=== PATIENT | male | born 2000 | race Caucasian/White ===

== ENCOUNTER 2024-01-01 21:29 | Emergency (ER) | payer OTHER, SELFPAY ==
[2024-01-01 21:31] VITALS: BP 130/90; PULSE 99; RESP 16; TEMP 36.7; O2SAT 99; BMI 24.7
--- NOTE | 2024-01-01 22:32 | EX.ED.VIS.PS ---
HPI HPI - Psych History of Present Illness Chief Complaint: Mental Health Informant: patient Onset/Context/Timing Onset: Weeks Context: Gradual Onset Worsened by: - (Nothing) Relieved by: Nothing Associated Symptoms Associated Symptoms - Psych: Positive for Confusion, Paranoia and Auditory Hallucinations; Negative for Suicidal Thoughts or Visual Hallucinations Narrative Narrative: Patient presents with paranoid ideations, confusion, and auditory hallucinations. Patient states he does hear some voices but does not know what they are telling him. Patient denies any suicidal ideations at this time. Patient states he has had thoughts of hurting other people but states that there is not a particular person that he wants to hurt. Patient states she has been feeling confused at times. Family states that the patient has not been sleeping well. Family states the patient has been sharpening knives because he thinks people are out to get him. Patient does admit to a mild headache. Patient admits to some nausea and vomiting. Patient also admits to some pain in his neck. Patient denies any fevers or chills. PFSH PFSH Medical History no medical history no medical history Home Medications ?Medication ?Instructions ?Recorded ?Last Taken ?Type NK 01/01/24 Unknown History Allergy/AdvReac Type Severity Reaction Status Date / Time No Known Allergies Allergy Verified 01/01/24 21:35 Surgical History no surgical history no surgical history Social History Smoking Status: Never smoker ROS ROS ED Constitutional Constitutional ED: Denies chills or fever(s) Eyes Eyes: Denies blurry vision or change in vision ENT ENT ED: Denies rhinorrhea or sore throat Cardiovascular Cardiovascular: Denies chest pain or palpitations Respiratory/Chest Respiratory/Chest: Denies cough or dyspnea Gastrointestinal Gastrointestinal: Reports nausea and vomiting Genitourinary Genitourinary ED: Denies dysuria or hematuria Musculoskeletal Musculoskeletal: Reports neck pain; Denies back pain Integumentary Denies abscess or rash Neurologic Neurologic: Reports headache(s); Denies weakness Allergic/Immunologic Allergic/Immunologic ED: Denies mouth swelling or urticaria EXAM Physical Exam Const Vital Signs: 01/01/24 21:31 Temperature 98.1 F Temperature Source Oral Pulse Rate 99 Respiratory Rate 16 Blood Pressure 130/90 H Blood Pressure Mean 103 Pulse Ox 99 Oxygen Delivery Method Room Air Positive well nourished and well developed General Appearance ED: well developed and NAD HEENT Reports moist mucous membranes Neck supple and no JVD Resp normal respiratory effort and clear to auscultation bilaterally Cardio Rate: regular rate Rhythm: regular rhythm GI non-tender and non-distended Palpation: soft Neuro oriented x3, CN's II-XII intact bilaterally and no sensory deficits noted [place] Coma Scale: document GCS findings Spontaneous Obeys Commands Oriented 15 Sensorium / Orientation: alert Motor Exam: strength 5/5 throughout Psych mental status grossly normal Appearance: grossly normal Attitude: calm Activity / Motor Behavior: appropriate eye contact Speech: soft Mood & Affect: flat affect Thought Content: No suicidality, delusion(s) and hallucination(s) Positive for auditory MDM MDM MDM Narrative Medical decision making narrative: Medical clearance labs will be obtained. CBC will be obtained to assess for leukocytosis and anemia. Basic metabolic profile will be obtained to assess for electrolyte abnormality and renal function. Urinalysis will be obtained to assess for urinary tract infection hematuria. Urine tox screen will be obtained to assess for substance abuse. Serum alcohol level will be obtained to assess for alcohol intoxication. CT scan of the brain will be obtained to assess for intracranial mass and bleeding. Lab Data Attestation: I reviewed the patient's lab results. Lab results narrative: CBC was reviewed and was within normal limits. Basic metabolic profile was reviewed. Potassium was slightly low at 3.2. The remainder is within normal limits. Urinalysis was reviewed. There is no evidence of urinary tract infection or hematuria. Urine tox screen was reviewed and was negative. Serum alcohol level was reviewed and was less than 3.0. Labs: Laboratory Results - last 24 hr 01/01/24 01/01/24 22:15 22:35 WBC 9.3 RBC 5.08 Hgb 13.7 Hct 41.7 MCV 82.1 MCH 27.0 MCHC 32.9 RDW Std Deviation 38.5 RDW Coeff of Halley 12.9 Plt Count 265 MPV 9.1 Immature Gran % (Auto) 0.300 Neut % (Auto) 61.7 Lymph % (Auto) 29.4 [place] % (Auto) 7.7 Eos % (Auto) 0.4 Baso % (Auto) 0.5 Absolute Neuts (auto) 5.7 Absolute Lymphs (auto) 2.73 Nucleated RBC % 0 Sodium 137 Potassium 3.2 L Chloride 104 Carbon Dioxide 26.0 Anion Gap 7 BUN 12 Creatinine 0.89 Estim Creat Clear Calc 130.19 Est GFR (MDRD) Af Amer 138 Est GFR (MDRD) Non-Af 114 BUN/Creatinine Ratio 13.5 Glucose 90 Calcium 9.6 Urine Color Straw Urine Clarity Sl. Cloudy Urine pH 7.0 Ur Specific [place] 1.010 Urine Protein Negative Urine Glucose (UA) Normal Urine Ketones Negative Urine Occult Blood Negative Urine Nitrite Negative Urine Bilirubin Negative Urine Urobilinogen Normal Ur Leukocyte Esterase Negative Urine RBC 0 SEEN Urine WBC 0 SEEN Ur Squamous Epith Cells 0 SEEN Urine Bacteria 0 SEEN Urine Mucus 0 SEEN Urine Opiates Screen NEGATIVE Urine Methadone Screen NEGATIVE Ur Barbiturates Screen NEGATIVE Ur Phencyclidine Scrn NEGATIVE Ur Amphetamines Screen NEGATIVE MDMA (Ecstasy) Screen NEGATIVE U Benzodiazepines Scrn NEGATIVE Urine Cocaine Screen NEGATIVE U Cannabinoids Screen NEGATIVE Ur Drug Screen Comment Ethyl Alcohol < 3.0 Radiography Diagnostic Testing: Clinical Impression(s) from Imaging Studies Brain CT 01/01/24 22:52 IMPRESSION: Normal unenhanced CT scan of the brain. Electronically Signed: Parag Hernandez MD at 23:30 EDT , CT scan of the brain was obtained. There is no acute intracranial abnormality. This was interpreted by the radiologist and was also independently reviewed by myself. Treatment and Re-Evaluation Narrative: Patient was medically cleared for crisis evaluation. Crisis was in to evaluate the patient and felt that the patient could be safety plan at home. Patient lives with several family member who will be able to monitor him. Crisis counselor was able to arrange for follow-up care. Patient and family understand and are agreeable with the plan. All questions were answered. Discharge Plan Triage Chief Complaint: Mental Health ED Provider: Renato Miller Dx/Rx/DC Orders Clinical Impression: Auditory hallucinations, Confusion Instructions: ED Confusion Prescriptions: No Action NK Primary Care Provider: Jacob Frias Referrals: Counseling,Center [Group of Physicians] - [facility] appointment Jacob Frias DO [Primary Care Provider] - 5-7 Days Print Language: Lao Disposition Disposition: Home, Self Care
[2024-01-01 22:44] LABS: Absolute Lymphocyte Count 2.73 X10^3/uL (0.83-4.51); Absolute Neutrophil Count 5.7 X10^3/uL (2.0-7.7); Basophil# 0.05 X10^3/uL; Basophil% 0.5 % (0-1); Eosinophil# 0.04 X10^3/uL; Eosinophils% 0.4 % (0-5); Hematocrit 41.7 % (40-54); Hemoglobin 13.7 g/dL (13.0-16.5); Lymphocyte # 2.73 X10^3/ul (0.83-4.51); Lymphocyte % 29.4 % (19-41); Mean Corp Hgb Conc 32.9 g/dL (32-36); Mean Corpuscular Volume 82.1 fL (80-94); Mean Platelet Vol. 9.1 fl (6.2-12.0); Monocyte# 0.71 X10^3/uL; Monocyte% 7.7 % (0-10); NRBC Flagged by Analyzer 0 % (0-5); Neutrophil # 5.72 X10^3/uL (2.7-7.7); Neutrophil % 61.7 % (47-70); Platelet Count 265 K/mm3 (150-450); RBC Distribution Width CV 12.9 % (11.6-14.6); RBC Distribution Width SD 38.5 fl (35.1-43.9); Red Blood Count 5.08 M/mm3 (4.6-6.2); White Blood Count 9.3 K/mm3 (4.4-11.0)
[2024-01-01 22:46] LABS: Bacteria 0 SEEN /hpf (None Seen); Mucous, Urine 0 SEEN /hpf (<or=2+); Red Blood Cells-Urine 0 SEEN /hpf (0-5); Squamous Epithelial Cells - UA 0 SEEN /hpf (0-5); White Blood Cells 0 SEEN /hpf (0-5)
[2024-01-01 22:51] LABS: Color, Urine Straw (Yellow); Glucose, Dipstick Normal (Normal); Ketone-Dipstick Negative (Negative); Leukocyte Esterase-Dipstick Negative /ul (Negative); Nitrite-Dipstick Negative (Negative); Occult Blood-Urine Negative /ul (Negative); Protein-Dipstick Negative (Negative); Urine Bilirubin Dipstick Negative (Negative); Urine Clarity Sl. Cloudy (Clear); Urine Urobilinogen Normal (Normal)
--- NOTE | 2024-01-01 22:52 | CT_ITS ---
STUDY: CT BRAIN WITHOUT CONTRAST REASON FOR EXAM: Male, 23 years old. CHANGE IN MENTAL STATUS. HASNT SLEPT IN DAYS RADIATION DOSAGE (If Supplied By Facility): CTDIvol = ( 44.99 ) mGy, DLP = ( 796.11 ) mGycm TECHNIQUE: Transaxial CT imaging of the brain was performed without administration of intravenous contrast material. Individualized dose optimization techniques were used for this CT. COMPARISON: No relevant priors. FINDINGS: Normal soft tissue structures. Normal calvarium. Normal size ventricles and extra-axial spaces for the patient''s age. Normal white matter tracts of the cerebral hemispheres. Normal basal ganglia and thalami. Normal brainstem. Normal cerebellum. There is no intracranial hemorrhage. There are no findings of an acute ischemic infarction. Normal visualized paranasal sinuses. CT/Brain/Head without Contrast IMPRESSION: Normal unenhanced CT scan of the brain. Electronically Signed: Parag Hernandez MD at 23:30 EDT ,
[2024-01-01 22:57] LABS: Alcohol, Blood (Medical)-Serum < 3.0 mg/dL
[2024-01-01 22:58] LABS: Anion Gap 7 (5-15); BUN 12 mg/dL (7-18); BUN/Creat Ratio 13.5 RATIO (10-20); Calcium,Total 9.6 mg/dL (8.5-10.1); Chloride 104 mmol/L (98-107); Creatinine, Serum 0.89 mg/dL (0.70-1.30); EST Glomerular Filtration Rate 114 mL/min (>60); Est Glom Filt Rate - Afr Amer 138 mL/min (>60); Estimated Creatinine Clearance 130.19 ml/min; Glucose 90 mg/dL (74-106); Potassium 3.2 mmol/L (3.5-5.1); Sodium Level 137 mmol/L (136-145)
[2024-01-01 23:06] LABS: Amphetamine Urine VISTA NEGATIVE (<1000 ng/mL); Barbiturate Urine VISTA NEGATIVE (< 200 ng/mL); Benzodiazepine Urine VISTA NEGATIVE (< 200 ng/mL); Cocaine Urine VISTA NEGATIVE (< 300 ng/mL); Ecstacy Urine VISTA NEGATIVE (< 500 ng/mL); Methadone Urine VISTA NEGATIVE (< 300 ng/mL); PCP Urine VISTA NEGATIVE (< 25 ng/mL); THC Urine VISTA NEGATIVE (< 50 ng/mL); Vista UDS pH Range 7
[2024-01-02 03:24] VITALS: BP 119/47; PULSE 79; RESP 16; TEMP 36.6; O2SAT 98
== END 2024-01-02 03:25 | disposition home or self-care (01) ==
PROVIDERS: Emergency Provider Emergency Medicine; PCP Family Medicine; Visit Provider Emergency Medicine
DX: R41.0 Disorientation, unspecified (principal); R44.3 Hallucinations, unspecified
CPT/HCPCS: 70450; 80048; 80307; 81001; 82077; 85025; 99283